=== PATIENT | female | born 1960 | race Caucasian/White ===

== ENCOUNTER → 2021-10-27 10:00 | Outpatient (BNVA) | payer OTHER, SELFPAY | PROVIDERS: Visit Provider Physician Assistant Medical | DX: S29.011A Strain of muscle and tendon of front wall of thorax, initial encounter (principal); X50.9XXA Other and unspecified overexertion or strenuous movements or postures, initial encounter | CPT/HCPCS: 71111; 99213 ==

== ENCOUNTER → 2021-10-29 11:21 | Outpatient (BNVA) | payer OTHER, SELFPAY | PROVIDERS: Visit Provider Physician Assistant Medical | DX: S29.011A Strain of muscle and tendon of front wall of thorax, initial encounter (principal); X58.XXXA Exposure to other specified factors, initial encounter | CPT/HCPCS: 99213 ==

== ENCOUNTER 2021-11-12 10:27 | Emergency (ER) | payer OTHER, SELFPAY ==
[2021-11-12 10:35] VITALS: BP 134/70; PULSE 98; RESP 20; TEMP 36.3; O2SAT 98; BMI 20.9
[2021-11-12] MEDS: Tetracaine HCl/PF 0.5% Oph Sol 4 ML DROPS 3 DROP EYE-LEFT (11:04)
[2021-11-12] MEDS: Fluorescein Sodium STRIP 1 STRIP EYE-LEFT (11:05)
[2021-11-12] MEDS: 0.9 % Sodium Chloride 1,000 ML 999 ML IV (11:45)
--- NOTE | 2021-11-12 12:49 | ED_ITS ---
HPI - Eye Problem General Chief complaint: Eye Problems Stated complaint: Bleach in L eye /Work inj Time Seen by Provider: 11/12/21 10:57 Source: patient Mode of arrival: ambulatory History of Present Illness HPI Narrative: 61-year-old female with a past medical history of hypotension presenting to the ED complaining of left eye irritation and foreign body sensation s/p accidentally getting splash of bleach into eye around 09:30am while at work. States was diluting bleach, put cap full a bleach into water container when drop splashed back at her. 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 Wears glasses, no contacts. Denies vision loss, pain with EOMs, blurry vision, or any irritation to right eye MD chief complaint: eye pain Onset (ago): day(s) Onset description: sudden Related Data Previous Rx's Medication Instructions Recorded erythromycin 5 mg/gram (0.5 %) eye 0.5 inch OPHTHALMIC (EYE) QID 7 11/12/21 ointment Days #3.5 g Allergies Allergy/AdvReac Type Severity Reaction Status Date / Time No Known Allergies Allergy Verified 11/12/21 10:57 Review of Systems Review of Systems: Constitutional: No Fever, No Chills, No Fatigue, No Malaise ENT/Mouth: No Ear Pain, No Nasal Congestion, No sore throat, No Swallowing Difficulty Eyes: + Eye Pain, No Swelling, No Redness, + Foreign Body Sensation, No Discharge, No Vision Changes Cardiovascular: No Chest Pain, No SOB Respiratory: No Cough, No Dyspnea Gastrointestinal: No Nausea, No Vomiting, No Diarrhea, No Constipation, No Abdominal pain Genitourinary: No Dysuria, No Urinary Frequency, No Flank Pain Musculoskeletal: No joint pain, No Myalgias, No Joint Swelling Skin: No Skin Lesions, No rash Neuro: No Weakness, No Loss of Consciousness, No Dizziness, No Headache Yes all other systems are reviewed and are negative PMFSH Past Medical History Attestation statement: The following information was validated with the patient. Medical History Hypotension Physical Exam Vital Signs: Vital Signs: Last Vital Signs Temp 97.4 F 11/12/21 10:35 Pulse 98 11/12/21 10:35 Resp 20 11/12/21 10:35 BP 134/70 11/12/21 10:35 Pulse Ox 98 11/12/21 10:35 BMI result Body Mass Index 20.9 Const: General: cooperative, healthy appearing and no acute distress Orientation/consciousness: patient oriented x3 Limitations: no limitations HEENT: Head: Yes normal to inspection Ears: hearing grossly normal bilaterally General nose exam: Normal external nose present Face and sinus: Yes normal facial exam Eyes: Other: Visual acuity 20/20 bilaterally. Fluorescein used to left eye without uptake, no appreciable corneal abrasions or ulcerations. pH right eye 7.0, pH left eye 7.5 initially General: appearance normal, both eyes and all related structures Visual Echeverria: normal visual echeverria by confrontation Eyelids: Yes eyelids normal Conjunctivae: conjunctivae normal Sclerae: sclerae normal Corneas: corneas normal Pupils: Equal, round and reactive pupils present EOM: EOMs intact bilaterally Direct Ophthalmoscopy: normal light reflex and no photophobia Neck: Neck: Yes normal visual inspection and Yes full ROM Resp: Effort & Inspection: normal respiratory effort and no respiratory distress Cardio: Rate: regular rate Heart sounds: S1 normal heart sound present and S2 normal heart sound present Skin: Rashes: no rashes Wounds: no wounds Neuro: General: patient oriented x3 Cranial nerves: Yes Equal, round and reactive pupils present Gait exam (Neuro): Normal gait present Extrem: General: Yes normal to inspection Course Course Course Narrative: > after 1 L Shahram's lens irrigation left eye pH 7.0, discussed worrisome signs and symptoms and strict return precautions with patient and needed close follow- up with Ophthalmology. Will send erythromycin ointment to pharmacy. Encouraged continued irrigation at home MDM - Eye Problem MDM Narrative Medical decision making narrative: 61-year-old female with a past medical history of hypotension presenting to the ED complaining of left eye irritation and foreign body sensation s/p accidentally getting splash of bleach into eye around 09:30am while at work. On exam vital signs stable, NAD, physical exam as above, pH to affected left eye 7.5 initially, will do 1 L Shahram's lines and re-evaluate. No fluorescein uptake, no appreciable ulceration, no evidence of globe rupture Differential Diagnosis Differential diagnosis: Likely corneal abrasion and corneal ulcer Medical Records Attestation: I reviewed the patient's medical records. Lab Data Attestation: I reviewed the patient's lab results. Discharge Plan Discharge Clinical Impression: Chemical burn of eye Patient Disposition: Home, Self-Care Instructions: Chemical Eye Pierce (ED) Additional Instructions: You have a chemical burn of your eye, continue to irrigate at home. 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
== END 2021-11-12 13:00 | disposition home or self-care (01) ==
PROVIDERS: Emergency Provider Emergency Medicine; PCP Internal Medicine
DX: T26.52XA Corrosion of left eyelid and periocular area, initial encounter (principal); H57.12 Ocular pain, left eye; Y93.9 Activity, unspecified; Y92.9 Unspecified place or not applicable; Y99.9 Unspecified external cause status
CPT/HCPCS: 99284

== ENCOUNTER → 2021-11-12 14:39 | Outpatient (BNVA) | payer OTHER, SELFPAY | PROVIDERS: Visit Provider Physician Assistant Medical | DX: S29.011D Strain of muscle and tendon of front wall of thorax, subsequent encounter (principal); X58.XXXD Exposure to other specified factors, subsequent encounter | CPT/HCPCS: 99213 ==